=== PATIENT | male | born 1960 ===

== ENCOUNTER 2021-04-22 17:02 | Emergency (ER) | payer MEDICAID ==
[~2021-04-22] VITALS: Ht 180.3 cm; Wt 71.7 kg
[2021-04-22 17:09] VITALS: BP 169/77
== END 2021-04-22 17:26 | disposition left against medical advice (07) ==
LOC: ER 17:02
DX: M79.10 Myalgia, unspecified site (principal); Z53.21 Procedure and treatment not carried out due to patient leaving prior to being seen by health care provider